=== PATIENT | female | born 1990 | race Caucasian/White ===

== ENCOUNTER 2024-05-05 18:34 | Outpatient (REF) | payer OTHER, SELFPAY ==
[2024-05-10 12:11] LABS: Age Gdln ACOG Testing Note (.); HPV Aptima Negative (Negative); IGP, Aptima HPV, rfx 16/18,45 Note (.)
== END 2024-05-05 18:35 | disposition home or self-care (01) ==
LOC: LAB 18:34
PROVIDERS: Visit Provider Physician Assistant
DX: Z01.419 Encounter for gynecological examination (general) (routine) without abnormal findings (principal)
CPT/HCPCS: 87624; 88175

== ENCOUNTER 2025-05-09 12:25 | Outpatient (REF) | payer BC, SELFPAY ==
--- OUTSIDE RECORDS SUMMARY | 2025-05-09 12:50 | XMS_ITS | CCD ---
Author Organization [facility] Care Team Providers Care Resident Program Specialist Name Role Phone Oanh Gil Unavailable JEANCARLOS ., DR HANSEN Admitting Unavailable REQUEST, NONE LISTED Primary Care Unavaila ble JEANCARLOS ., DR HANSEN Consulting Unavailable JEANCARLOS ., DR HANSEN Attending Unavailable ZIEBER, DR HAILEE Carrillo Consulting Unavailable JEANCARLOS ., DR HANSEN Admitting Unavailable REQUEST, DR NIX LISTED Primary Care Unavaila ble JEANCARLOS ., DR HANSEN Attending Unavailable REQUEST, NONE LISTED Primary Care Unavaila ble JEANCARLOS ., DR HANSEN Admitting Unavailable JEANCARLOS ., DR HANSEN Attending Unavailable JEANCARLOS ., DR HANSEN Admitting Unavailable REQUEST, DR NIX LISTED Primary Care Unavaila ble JEANCARLOS ., DR HANSEN Attending Unavailable CYNTHIA VIRGEN Consulting Unavailable JEANCARLOS ., DR HANSEN Admitting Unavailable JEANCARLOS ., DR HANSEN Attending Unavailable REQUEST, NONE LISTED Primary Care Unavaila ble JEANCARLOS ., DR HANSEN Consulting Unavailable CYNTHIA VIRGEN Consulting Unavailable JEANCARLOS ., DR HANSEN Admitting Unavailable REQUEST, NONE LISTED Primary Care Unavaila ble JEANCARLOS ., DR HANSEN Attending Unavailable JEANCARLOS ., DR HANSEN Consulting Unavailable REQUEST, NONE LISTED Primary Care Unavaila ble KARASIK ., DR KAY Attending Unavailabl e KARASIK ., DR AKY Consulting Unavailabl e KARASIK ., DR KAY Admitting Unavailabl e JEANCARLOS ., DR HANSEN Consulting Unavailable REQUEST, DR NONE LISTED Primary Care Unavaila ble JEANCARLOS ., DR HANSEN Admitting Unavailable JEANCARLOS ., DR HANSEN Attending Unavailable JEANCARLOS ., DR HANSEN Consulting Unavailable JEANCARLOS ., DR HANSEN Admitting Unavailable JEANCARLOS ., DR HANSEN Attending Unavailable REQUEST, DR NONE LISTED Primary Care Unavaila ble ZIEBER, DR HAILEE Carrillo Consulting Unavailable JEANCARLOS ., DR HANSEN Admitting Unavailable JEANCARLOS ., DR HANSEN Attending Unavailable PROMISE, CYNTHIA Consulting Unavailable REQUEST, DR NONE LISTED Primary Care Unavaila ble JEANCARLOS ., DR HANSEN Consulting Unavailable REQUEST, DR NONE LISTED Primary Care Unavaila ble KARASIK ., DR KAY Admitting Unavailabl e KARASIK ., DR KAY Attending Unavailabl e KARASIK ., DR KAY Consulting Unavailabl e RUFF, SWEETIE Primary Care Unavailable JEANCARLOS ., DR HANSEN Admitting Unavailable JEANCARLOS ., DR HANSEN Attending Unavailable JEANCARLOS ., DR HANSEN Admitting Unavailable JEANCARLOS ., DR HANSEN Attending Unavailable RUFF, SWEETIE Primary Care Unavailable JEANCARLOS ., DR HANSEN Admitting Unavailable JEANCARLOS ., DR HANSEN Attending Unavailable REQUEST, DR NONE LISTED Primary Care Unavaila ble REQUEST, DR NONE LISTED Primary Care Unavaila ble KARASIK ., DR KAY Attending Unavailabl e KARASIK ., DR KAY Consulting Unavailabl e KARASIK ., DR KAY Admitting Unavailabl e REQUEST, DR NONE LISTED Primary Care Unavaila ble JEANCARLOS ., DR HANSEN Admitting Unavailable FORTUNATO COPELAND Consulting Unavailable JEANCARLOS ., DR HANSEN Attending Unavailable JEANCARLOS ., DR HANSEN Consulting Unavailable JEANCARLOS ., DR HANSEN Admitting Unavailable REQUEST, DR NONE LISTED Primary Care Unavaila ble JEANCARLOS ., DR HANSEN Attending Unavailable JEANCARLOS ., DR HANSEN Admitting Unavailable REQUEST, DR NONE LISTED Primary Care Unavaila ble JEANCARLOS ., DR HANSEN Attending Unavailable KARASIK ., DR KAY Consulting Unavailabl e JEANCARLOS ., DR HANSEN Admitting Unavailable REQUEST, DR NONE LISTED Primary Care Unavaila ble JEANCARLOS ., DR HANSEN Attending Unavailable JEANCARLOS ., DR HANSEN Consulting Unavailable HAILEE BURRELL Consulting Unavailable JEANCARLOS ., DR AHNSEN Procedure Practitioner Unavail able REQUEST, DR NONE LISTED Primary Care Unavaila ble JEANCARLOS ., DR HANSEN Admitting Unavailable JEANCARLOS ., DR HANSEN Attending Unavailable JEANCARLOS ., DR HANSEN Consulting Unavailable KARASIK ., DR KAY Attending Unavailabl e KARASIK ., DR KAY Consulting Unavailabl e KARASIK ., DR KAY Admitting Unavailabl e REQUEST, DR NONE LISTED Primary Care Unavaila CYNTHIA Gutiérrez Consulting Unavailable JEANCARLOS ., DR HANSEN Consulting Unavailable JEANCARLOS ., DR HANSEN Admitting Unavailable REQUEST, NONE LISTED Primary Care Unavaila sánchez ARSHAD ., DR HANSEN Consulting Unavailable JEANCARLOS ., DR HANSEN Attending Unavailable Sweetie Brandon Primary Care Provid er Unavailable Primary Care Provider UnavailSWEETIE Parker Attending Unavailable SWEETIE RUFF Referring Unavailable SWEETIE RUFF Primary Care Unavailable SWEETIE RUFF Referring Unavailable SWEETIE RUFF Primary Care Unavailable SUE NEIL Attending Unavailable SUE NEIL Attending Unavailable JOLYNN CASTILLO Attending Unavailable Sue Chaudhry Unavailable Medications Current Medications Medication Drug Class(es) Dates Sig (Normalized) Sig (Original) doxycycline monohydrate 100 mg oral capsule (7 sources) Tetracycline-class Drug Start: 12-12-2024 take 1 capsule by mouth once daily doxycycline (Monodox) 100 MG capsule Indications: Hidradenitis suppurativa Take 1 capsule, by mouth, once daily, 30 days 30 capsule 11 12/12/2024 Active labetalol hydrochloride 100 mg oral tablet (1 source) beta-Adrenergic Dolly take 1 tablet by mouth every twelve hours Labetalol HCl 100 MG 1 tablet Orally Twice a day Active levonorgestrel 0.164374 mg/hr intrauterine system (8 sources) Progestin, Progestin-containi ng Intrauterine Device Levonorgestrel (Mirena, 52 MG,) 20 MCG/DAY intrauterine device Mirena (52 MG) Active levonorgestreL ( MIRENA) 21 mcg/24hr (up to 8 yrs) 52 mg IUD Mirena (52 MG) Active (1 source) Active Problems Active Problems Problem Classification Problem Date Documented Date Episodic/Chronic Diabetes or abnormal glucose tolerance complicating ; childbirth; or the puerperium (1 source) Unspecified pre-existing diabetes mellitus in , third trimester; Translations: [UNS PRE-EXISTING DM PREG 3RD TRI] Onset: 03-20-2022 Chronic Hypertension complicating ; childbirth and the puerperium (8 sources) Unspecified pre-existing hypertension complicating childbirth; Translations: [Unspecified pre-existing hypertension complicating , third trimester] Onset: 02-14-2019 Resolved: 01-05-2024 Chronic Immunizations and screening for infectious disease (2 sources) Contact with and (suspected) exposure to other viral communicable diseases; Translations: [Encounter for screening for human papillomavirus (HPV)] Onset: 10-18-2021 Resolved: 10-18-2021 Episodic Other screening for suspected conditions (not mental disorders or infectious disease) (8 sources) Encounter for screening for malignant neoplasm of cervix; Translations: [Encounter for screening for Streptococcus B] Onset: 03-26-2022 Episodic Other skin disorders (4 sources) Hidradenitis suppurativa; Translations: [Hidradenitis suppurativa] 12-12-2024 Episodic Unclassified (1 source) CONTACT W/AND (SUSP) EXPOS COVID-19; Translations: [CONTACT W/AND (SUSP) EXPOS COVID-19] Onset: 04-08-2022 Unclassified (1 source) Annual Exam Onset: 01-05-2025 Past or Other Problems Problem Classification Problem Date Documented Da te Episodic/Chronic Diabetes or abnormal glucose tolerance complicating ; childbirth; or the puerperium (8 sources) Gestational diabetes mellitus in , insulin controlled; Translations: [Gestational diabetes mellitus in childbirth, insulin controlled] Onset: 03-26-2022 Episodic Mood disorders (2 sources) Mood disorders Onset: 01-05-2024 Resolved: 01-05-2025 01-05-2024 Nutritional deficiencies (2 sources) Vitamin D deficiency; Translations: [Vitamin D deficiency, unspecified] Onset: 01-26-2019 Resolved: 01-05-2024 01-05-2024 Chronic OB-related trauma to perineum and vulva (1 source) Other specified trauma to perineum and vulva; Translations: [OTHER SPEC TRAUMA PERINEUM AND VULVA] Onset: 04-08-2022 Episodic Other aftercare (1 source) marine oil terminal superintendent (current) use of insulin; 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] Onset: 03-20-2022 Episodic Other complications of ; puerperium affecting management of mother (4 sources) Maternal care for other (suspected) abnormality and damage, not applicable or unspecified; Translations: [MAT CARE OTH ABN DAMGE NA/UNS] Onset: 03-20-2022 Episodic Other and delivery including normal (11 sources) Encounter for care and examination of lactating mother; Translations: [Encounter for routine follow-up] Onset: 05-13-2019 Resolved: 01-05-2024 Episodic Other upper respiratory infections (1 source) Acute upper respiratory infection, unspecified Onset: 10-18-2021 Resolved: 10-18-2021 Episodic Residual codes; unclassified (1 source) 37 weeks gestation of ; Translations: [37 WEEKS GESTATION OF ] Onset: 04-08-2022 Episodic Residual codes; unclassified (1 source) 36 weeks gestation of ; Translations: [36 WEEKS GESTATION OF ] Onset: 03-31-2022 Episodic Residual codes; unclassified (1 source) 35 weeks gestation of ; Translations: [35 WEEKS GESTATION OF ] Onset: 03-31-2022 Episodic Residual codes; unclassified (1 source) 34 weeks gestation of ; Translations: [34 WEEKS GESTATION OF ] Onset: 03-20-2022 Episodic Residual codes; unclassified (1 source) 33 weeks gestation of ; Translations: [33 WEEKS GESTATION OF ] Onset: 03-13-2022 Episodic Residual codes; unclassified (1 source) 32 weeks gestation of ; Translations: [32 WEEKS GESTATION OF ] Onset: 03-05-2022 Episodic Unclassified (1 source) Cough R05.9 Onset: 10-18-2021 Resolved: 10-18-2021 Unclassified (2 sources) Onset: 01-05-2024 Resolved: 01-09-2025 01-05-2024 NEGATED: Highlighted row has been ruled out!Unclassified (2 sources) No known active problems 01-05-2024 Results Test Name Value Interpretation Reference Range Facility Hemoglobin A1con 01-06-2025 Average glucose Estimated from glycated hemoglobin (Bld) [Mass/Vol] 123 mg/dL [facility] HbA1c (Bld) [Mass fraction] 5.9 % High 4.4 - 5.6 % [facility] Comment on above: NOTE ADA Guidelines Result HgbA1c Normal : less than 5.7 % Prediabetes : 5.7 % to 6.4 % Diabetes : > 6.4 % Use with caution in patients with abnormal hemoglobin variants as the half-life of red blood cells and in vivo glycation rates are affected. Interpretation and review of laboratory results Abnormal [facility] CBC AND AUTO DIFFon 01-06-20 25 ABSOLUTE BASOPHIL 0.0 X10E9/L Normal 0.0-0.2 [facility] Comment on above: Performed By: #### Taco SIMMS CMP, 30911-1, HA1C #### [facility] ([id number]) [address], [address] [place] [address] ABSOLUTE NEUTROPHIL 5.3 X10E9/L Normal 1.5-6.6 [facility] Comment on above: Performed By: #### Taco SIMMS CMP, 16219-6, HA1C #### [facility] ([id number]) [address], [address] [place] [address] Basophils/100 WBC (Bld) 0.4 % Normal [facility] Comment on above: Performed By: #### Taco SIMMS CMP, 96021-5, HA1C #### [facility] ([id number]) [address], [address] [place] [address] Eosinophils (Bld) [#/Vol] 0.1 10*3/uL Normal 0.0-0.4 [facility] Comment on above: Performed By: #### Taco SIMMS CMP, 88559-9, HA1C #### [facility] ([id number]) [address], [address] [place] [address] Eosinophils/100 WBC (Bld) 0.7 % Normal [facility] Comment on above: Performed By: #### Taco SIMMS CMP, 09874-5, HA1C #### [facility] ([id number]) [address], [address] [place] [address] Erythrocyte distribution width (RBC) [Ratio] 13.2 % Normal 11.5-15.0 [facility] Comment on above: Performed By: #### C JASWANT SIMMS, 47044-8, HA1C #### [facility] ([id number]) [address], [address] [place] [address] Hematocrit (Bld) [Volume fraction] 40.5 % Normal 35-47 [facility] Comment on above: Performed By: #### Taco SIMMS CMP, 74031-9, HA1C #### [facility] ([id number]) [address], [address] [place] [address] Hemoglobin (Bld) [Mass/Vol] 13.7 g/dL Normal 11.7-15.5 [facility] Comment on above: Performed By: #### Taco SIMMS CMP, 11405-0, HA1C #### [facility] ([id number]) [address], [address] [place] [address] Lymphocytes (Bld) [#/Vol] 2.1 10*3/uL Normal 1.0-3.5 [facility] Comment on above: Performed By: #### Taco SIMMS CMP, 99487-7, HA1C #### [facility] ([id number]) [address], [address] [place] [address] Lymphocytes/100 WBC (Bld) 26.6 % Normal [facility] Comment on above: Performed By: #### Taco SIMMS CMP, 82229-8, HA1C #### [facility] ([id number]) [address], [address] [place] [address] MCH (RBC) [Entitic mass] 30.2 pg Normal 27-34 [facility] Comment on above: Performed By: #### Taco SIMMS CMP, 51786-8, HA1C #### [facility] ([id number]) [address], [address] [place] [address] MCHC (RBC) [Mass/Vol] 34.0 g/dL Normal 32-36 [facility] Comment on above: Performed By: #### C JASWANT SIMMS, 26381-1, HA1C #### [facility] ([id number]) [address], [address] [place] [address] MCV (RBC) [Entitic vol] 89 fL Normal 80-100 [facility] Comment on above: Performed By: #### Taco SIMMS CMP, 99709-6, HA1C #### [facility] ([id number]) [address], [address] [place] [address] Monocytes (Bld) [#/Vol] 0.4 10*3/uL Normal 0-0.9 [facility] Comment on above: Performed By: #### Taco SIMMS CMP, 66271-8, HA1C #### [facility] ([id number]) [address], [facility] [address] [place] [address] Monocytes/100 WBC (Bld) 5.5 % Normal [facility] Comment on above: Performed By: #### Taco SIMMS CMP, 89577-5, HA1C #### [facility] ([id number]) [address], [address] [place] [address] Neutrophils/100 WBC (Bld) 66.8 % Normal [facility] Comment on above: Performed By: #### Taco SIMMS CMP, 13360-2, HA1C #### [facility] ([id number]) [address], [address] [place] [address] Platelet mean volume (Bld) [Entitic vol] 8.6 fL Normal 7-12 [facility] Comment on above: Performed By: #### Taco SIMMS CMP, 12238-6, HA1C #### [facility] ([id number]) [address], [address] [place] [address] Platelets (Bld) [#/Vol] 315 10*3/uL Normal 150-450 [facility] Comment on above: Performed By: #### C DEMI, CMP, 99217-5, HA1C #### [facility] ([id number]) [address], [address] [place] [address] RBC COUNT 4.54 X10E12/L Normal 3.80-5.20 [facility] Comment on above: Performed By: #### Taco SIMMS, JASWANT, 17602-0, HA1C #### [facility] ([id number]) [address], [address] [place] [address] WBC (Bld) [#/Vol] 7.9 10*3/uL Normal 4.0-11.0 [facility] Comment on above: Performed By: #### Taco SIMMS, CMP, 39816-5, HA1C #### [facility] ([id number]) [address], [address] [place] [address] CBC auto differentialon 12-18 Basophils (Bld) [#/Vol] 0 10*3/uL [facility] Basophils/100 WBC (Bld) 0.4 % [facility] Eosinophils (Bld) [#/Vol] 0.1 10*3/uL [facility] Eosinophils/100 WBC (Bld) 0.7 % [facility] Erythrocyte distribution width (RBC) [Ratio] 13.2 % 11.5 - 15.0 % [facility] Hematocrit (Bld) [Volume fraction] 40.5 % 35 - 47 % [facility] Hemoglobin (Bld) [Mass/Vol] 13.7 g/dL 11.7 - 15.5 g/dL [facility] Lymphocytes (Bld) [#/Vol] 2.1 10*3/uL [facility] Lymphocytes/100 WBC (Bld) 26.6 % [facility] MCH (RBC) [Entitic mass] 30.2 pg 27 - 34 pg [facility] MCHC (RBC) [Mass/Vol] 34 g/dL 32 - 36 g/dL [facility] MCV (RBC) [Entitic vol] 89 fL 80 - 100 fL [facility] Monocytes (Bld) [#/Vol] 0.4 10*3/uL [facility] Monocytes/100 WBC (Bld) 5.5 % [facility] Neutrophils (Bld) [#/Vol] 5.3 10*3/uL [facility] Neutrophils/100 WBC (Bld) 66.8 % [facility] Platelet mean volume (Bld) [Entitic vol] 8.6 fL 7 - 12 fL [facility] Platelets (Bld) [#/Vol] 315 10*3/uL [facility] RBC (Bld) [#/Vol] 4.54 10*6/uL [facility] WBC corrected for nucl RBC Auto (Bld) [#/Vol] 7.9 [facility] COMPREHENSIVE METABOLIC PANE Mariano 01-05-2025 Albumin [Mass/Vol] 4.2 g/dL Normal 3.2-5.3 [facility] Comment on above: Performed By: #### C BCA, CMP, 35784-4, HA1C #### [facility] ([id number]) [address], [address] [place] [address] ALP [Catalytic activity/Vol] 36 U/L Low 39-130 [facility] Comment on above: Performed By: #### C BCA, CMP, 12083-4, HA1C #### [facility] ([id number]) [address], [address] [place] [address] ALT [Catalytic activity/Vol] 45 U/L High 0-31 [facility] Comment on above: Performed By: #### C BCA, CMP, 89160-8, HA1C #### [facility] ([id number]) [address], [address] [place] [address] Anion gap [Moles/Vol] 7 mmol/L Normal 5-15 [facility] Comment on above: Performed By: #### C BCA, CMP, 90257-1, HA1C #### [facility] ([id number]) [address], [address] [place] [address] AST [Catalytic activity/Vol] 26 U/L Normal 0-41 [facility] Comment on above: Performed By: #### C BCA, CMP, 46887-1, HA1C #### [facility] ([id number]) [address], [address] [place] [address] Bilirubin [Mass/Vol] 0.4 mg/dL Normal 0.3-1.2 [facility] Comment on above: Performed By: #### C BCA, CMP, 45223-7, HA1C #### [facility] ([id number]) [address], [address] [place] [address] Calcium [Mass/Vol] 9.2 mg/dL Normal 8.5-10.5 [facility] Comment on above: Performed By: #### C BCA, CMP, 82659-2, HA1C #### [facility] ([id number]) [address], [address] [place] [address] Chloride [Moles/Vol] 104 mmol/L Normal 98-109 [facility] Comment on above: Performed By: #### C BCA, CMP, 93410-5, HA1C #### [facility] ([id number]) [address], [address] [place] [address] CO2 [Moles/Vol] 27 mmol/L Normal 22-32 [facility] Comment on above: Performed By: #### C BCA, CMP, 49394-4, HA1C #### [facility] ([id number]) [address], [address] [place] [address] Creatinine [Mass/Vol] 0.77 mg/dL Normal 0.40-1.00 [facility] Comment on above: Result Comment: METH OD TRACEABLE TO IDMS STANDARD Performed By: #### C BCA, CMP, 99452-5, HA1C #### [facility] ([id number]) [address], [address] [place] [address] eGFR (CKD-EPI) NON-RACE DEPENDENT >90 Normal >59 [facility] Comment on above: Result Comment: Reported eGFR is based on the CKD-EPI 2020 equation that does not use a race coefficient. Performed By: #### C BCA, CMP, 43969-7, HA1C #### [facility] ([id number]) [address], [address] [place] [address] Glucose [Mass/Vol] 108 mg/dL High 65-99 [facility] Comment on above: Performed By: #### C BCA, CMP, 31366-5, HA1C #### [facility] ([id number]) [address], [address] [place] [address] Potassium [Moles/Vol] 3.9 mmol/L Normal 3.5-5.0 [facility] Comment on above: Performed By: #### C BCA, CMP, 88642-9, HA1C #### [facility] ([id number]) [address], [address] [place] [address] Protein [Mass/Vol] 7.5 g/dL Normal 6.0-8.0 [facility] Comment on above: Performed By: #### C BCA, CMP, 74733-7, HA1C #### [facility] ([id number]) [address], [address] [place] [address] Sodium [Moles/Vol] 138 mmol/L Normal 134-146 [facility] Comment on above: Performed By: #### C BCA, CMP, 72351-1, HA1C #### [facility] ([id number]) [address], [address] [place] [address] Urea nitrogen [Mass/Vol] 15 mg/dL Normal 5-23 [facility] Comment on above: Performed By: #### C BCA, CMP, 95824-4, HA1C #### [facility] ([id number]) [address] [facility], [address] [place] [address] Comprehensive metabolic pane mariano 01-05-2025 Albumin [Mass/Vol] 4.2 g/dL 3.2 - 5.3 g/dL [facility] ALP [Catalytic activity/Vol] 36 U/L Low 39 - 130 U/L [facility] ALT No additional P-5'-P [Catalytic activity/Vol] 45 U/L High 0 - 31 U/L [facility] Anion gap [Moles/Vol] 7 mmol/L 5 - 15 mmol/L [facility] AST [Catalytic activity/Vol] 26 U/L 0 - 41 U/L [facility] Bilirubin [Mass/Vol] 0.4 mg/dL 0.3 - 1.2 mg/dL [facility] Calcium [Mass/Vol] 9.2 mg/dL 8.5 - 10. 5 mg/dL [facility] Chloride [Moles/Vol] 104 mmol/L 98 - 109 mmol/L [facility] CO2 [Moles/Vol] 27 mmol/L 22 - 32 mmol/L [facility] Creatinine [Mass/Vol] 0.77 mg/dL 0.40 - 1.00 mg/dL [facility] Comment on above: METHOD TRACEABLE TO IDNJ STANDARD eGFR (CKD-EPI)non-race dependent - PINF [facility] Comment on above: Reported eGFR is based on the CKD-EPI 2020 equation that does not use a race coefficient. Glucose [Mass/Vol] 108 mg/dL High 65 - 99 mg/dL [facility] Potassium [Moles/Vol] 3.9 mmol/L 3.5 - 5.0 mmol/L [facility] Protein [Mass/Vol] 7.5 g/dL 6.0 - 8.0 g/dL [facility] Sodium [Moles/Vol] 138 mmol/L 134 - 146 mmol/L [facility] Urea nitrogen [Mass/Vol] 15 mg/dL 5 - 23 mg/dL [facility] HGB A1C (GLYCO-HGB)on 2024 Glucose [Mass/Vol] 123 mg/dL Normal [facility] Comment on above: Performed By: #### C DEMI, [facility], 46870-9, HA1C #### [facility] ([id number]) [address], [address] [place] [address] HbA1c (Bld) [Mass fraction] 5.9 % High 4.4-5.6 [facility] Comment on above: Result Comment: NOTE ADA Guidelines Result HgbA1c Normal : less than 5.7 % Prediabetes : 5.7 % to 6.4 % Diabetes : > 6.4 % Use with caution in patients with abnormal hemoglobin variants as the half-life of red blood cells and in vivo glycation rates are affected. Performed By: #### C DEMI, [facility], 81884-5, HA1C #### [facility] ([id number]) [address], [address] [place] [address] Lipid 1996 panelon 5 Cholesterol [Mass/Vol] 124 mg/dL Low 150 - 200 [facility] Cholesterol in HDL [Mass/Vol] 50 mg/dL 39 - PINF mg/dL [facility] Comment on above: HDL <40 mg/dL - High Risk HDL > or = 40mg/dL- Desirable HDL >60 mg/dL - Negative Risk Cholesterol in LDL [Mass/Vol] 63 mg/dL NINF - 130 mg/dL [facility] Comment on above: LDL <100 mg/dL - Desirable LDL >160 mg/dL - High Risk Cholesterol in VLDL [Mass/Vol] 11 mg/dL 0 - 30 mg/dL [facility] Cholesterol.total/C holesterol in HDL [Mass ratio] 2.5 {ratio} 1.0 - 5.0 [facility] Triglyceride [Mass/Vol] 54 mg/dL 27 - 150 mg/dL [facility] Cholesterol [Mass/Vol] 124 mg/dL Low 150-200 [facility] Comment on above: Performed By: #### Taco SIMMS, JASWANT, 62661-4, HALam #### [facility] ([id number]) [address], [address] [place] [address] Cholesterol in HDL [Mass/Vol] 50 mg/dL Normal >39 [facility] Comment on above: Result Comment: HDL <40 mg/dL - High Risk HDL > or = 40mg/dL- Desirable HDL >60 mg/dL - Negative Risk Performed By: #### Taco SIMMS, JASWANT, 90211-3, HA1C #### [facility] ([id number]) [address], [address] [place] [address] Cholesterol in LDL [Mass/Vol] 63 mg/dL Normal <130 [facility] Comment on above: Result Comment: LDL <100 mg/dL - Desirable LDL >160 mg/dL - High Risk Performed By: #### Taco SIMMS, JASWANT, 59309-5, HA1C #### [facility] ([id number]) [address] [place] [address] Cholesterol in VLDL [Mass/Vol] 11 mg/dL Normal 0-30 [facility] Comment on above: Performed By: #### Taco SIMMS, JASWANT, 47996-2, HA1C #### [facility] ([id number]) [address], [address] [place] [address] CHOLESTEROL:HDL 2.5 Normal 1.0-5.0 [facility] Comment on above: Performed By: #### C DEMI, CMP, 48118-2, HA1C #### [facility] ([id number]) [address], [address] [place] [address] Triglyceride [Mass/Vol] 54 mg/dL Normal 27-150 [facility] Comment on above: Performed By: #### C BCA, CMP, 19010-6, HA1C #### [facility] ([id number]) [address], [address] [place] [address] No Panel Informationon 01-05 Interpretation and review of laboratory results Abnormal [facility] CBC auto differentialon 12-17 Basophils (Bld) [#/Vol] 0.0 10*3/uL [facility] Basophils/100 WBC (Bld) 0.4 % [facility] Eosinophils (Bld) [#/Vol] 0.1 10*3/uL [facility] Eosinophils/100 WBC (Bld) 0.6 % [facility] Erythrocyte distribution width (RBC) [Ratio] 13.0 % 11.5 - 15.0 % [facility] Hematocrit (Bld) [Volume fraction] 40.4 % 35 - 47 % [facility] Hemoglobin (Bld) [Mass/Vol] 13.9 g/dL 11.7 - 15.5 g/dL [facility] Interpretation and review of laboratory results Abnormal [facility] Lymphocytes (Bld) [#/Vol] 2.5 10*3/uL [facility] Lymphocytes/100 WBC (Bld) 24.2 % [facility] MCH (RBC) [Entitic mass] 30.4 pg 27 - 34 pg [facility] MCHC (RBC) [Mass/Vol] 34.3 g/dL 32 - 36 g/dL [facility] MCV (RBC) [Entitic vol] 89 fL 80 - 100 fL [facility] Monocytes (Bld) [#/Vol] 0.5 10*3/uL [facility] Monocytes/100 WBC (Bld) 4.8 % [facility] Neutrophils (Bld) [#/Vol] 7.3 10*3/uL High [facility] Neutrophils/100 WBC (Bld) 70.0 % [facility] Platelet mean volume (Bld) [Entitic vol] 8.6 fL 7 - 12 fL [facility] Platelets (Bld) [#/Vol] 330 10*3/uL [facility] RBC (Bld) [#/Vol] 4.55 10*6/uL [facility] WBC corrected for nucl RBC Auto (Bld) [#/Vol] 10.4 [facility] metabolic pane mariano 01-05-2024 Albumin [Mass/Vol] 4.3 g/dL 3.2 - 5.3 g/dL [facility] ALP [Catalytic activity/Vol] 44 U/L 39 - 130 U/L [facility] ALT No additional P-5'-P [Catalytic activity/Vol] 41 U/L High 0 - 31 U/L [facility] Anion gap [Moles/Vol] 10 mmol/L 5 - 15 mmol/L [facility] AST [Catalytic activity/Vol] 20 U/L 0 - 41 U/L [facility] Bilirubin [Mass/Vol] 0.4 mg/dL 0.3 - 1.2 mg/dL [facility] Calcium [Mass/Vol] 9.4 mg/dL 8.5 - 10. 5 mg/dL [facility] Chloride [Moles/Vol] 102 mmol/L 98 - 109 mmol/L [facility] CO2 [Moles/Vol] 27 mmol/L 22 - 32 mmol/L [facility] Creatinine [Mass/Vol] 0.79 mg/dL 0.40 - 1.00 mg/dL [facility] Comment on above: METHOD TRACEABLE TO IDNJ STANDARD eGFR (CKD-EPI)non-race dependent - PINF [facility] Comment on above: Reported eGFR is based on the CKD-EPI 2020 equation that does not use a race coefficient. Glucose [Mass/Vol] 97 mg/dL 65 - 99 mg/dL [facility] Interpretation and review of laboratory results Abnormal [facility] Potassium [Moles/Vol] 4.2 mmol/L 3.5 - 5.0 mmol/L [facility] Protein [Mass/Vol] 7.8 g/dL 6.0 - 8.0 g/dL [facility] Sodium [Moles/Vol] 139 mmol/L 134 - 146 mmol/L [facility] Urea nitrogen [Mass/Vol] 15 mg/dL 5 - 23 mg/dL [facility] TSHon 01-05-2024 TSH Qn 0.97 m[IU]/L [facility] TSH Qnon 01-05-2024 [facility] PAP ACOG PANEL 2: 30 to 65on 02-17-2023 . . Normal [facility] Comment on above: Result Comment: Perf ormed at: WB Performed By: #### [id number] #### [facility] [address] [place] [address] Dr. Enoc Lyle Age Gdln ACOG Testing 30-65 Normal [facility] Comment on above: Performed By: #### 4 [id number] #### [facility] [address] [address] [address] Enoc Lyle DIAGNOSIS: Comment Normal [facility] Comment on above: Result Comment: NEGA TIVE FOR INTRAEPITHELIAL LESION OR MALIGNANCY. THIS SPECIMEN WAS RESCREENED PART OF OUR [employer] PROGRAM. Performed at: WB Performed By: #### 4 [id number] #### [facility] [address] [address] [address] Enoc Lyle HPV Aptima Negative Normal Negative [facility] Comment on above: Result Comment: This nucleic acid amplification test detects fourteen high-risk HPV types (16,18,31,33,35,39,45,51,52,56,58,59,66,68) without differentiation. Performed at: =G Performed By: #### 4 [id number] #### [facility] [address] [place] [address] Dr. Enoc Lyle HPV Genotype Reflex Comment Normal [facility] Comment on above: Result Comment: Crit eria not met, HPV Genotype not performed. Performed at: WB Performed By: #### 4 [id number] #### [facility] [address] [place] [address] Dr. Enoc Lyle Methodology: Comment Normal [facility] Comment on above: Result Comment: This liquid based ThinPrep(R) pap test was screened with the use of an image guided system. Performed at: WB Performed By: #### 4 [id number] #### [facility] [address] [place] [address] Dr. Enoc Lyle Note: Comment Normal [facility] Comment on above: Result Comment: The Pap smear is a screening test designed to aid in the detection of premalignant and malignant conditions of the uterine cervix. It is not a diagnostic procedure and should not be used as the sole means of detecting cervical cancer. Both false-positive and false-negative reports do occur. . Performed at: WB Performed By: #### 4 [id number] #### [facility] [address] [place] [address] Dr. Enoc Lyle Performed by: Comment Normal [facility] Comment on above: Result Comment: Rocael Roque, Control Specialist (ASCP) Performed at: WB Performed By: #### 4 [id number] #### [facility] [address] [place] [address] Dr. Enoc Lyle QC reviewed by: Comment Normal [facility] Comment on above: Result Comment: Keke Rahman, Supervisory Control Specialist (ASCP) Performed at: WB Performed By: #### 4 [id number] #### [facility] [address] [place] [address] Dr. Enoc Lyle Specimen adequacy: Comment Normal [facility] Comment on above: Result Comment: Sati sfactory for evaluation. Endocervical and/or squamous metaplastic cells (endocervical component) are present. Performed at: WB Performed By: #### 4 [id number] #### [facility] [address] [place] [address] Dr. Enoc Lyle CBC AUTO DIFFon 04-05-2022 BASO # 0.0 103/ul Normal 0.0-0.1 [facility] Comment on above: Performed By: #### C BC ####[facility] [address] [id number]. Enoc Lyle Basophils/100 WBC (Bld) 0.3 % Normal 0.2-2.0 [facility] Comment on above: Performed By: #### C BC ####[facility] [address] [id number]. Enoc Lyle EO # 0.1 103/ul Normal 0.0-0.7 [facility] Comment on above: Performed By: #### C BC ####[facility] [address] [place], [place] [address]Dr. Enoc Lyle Eosinophils/100 WBC (Bld) 0.8 % Critically low 0.9-7.0 [facility] Comment on above: Performed By: #### C BC ####[facility] [address] [place], [place] [address]Dr. Enoc Lyle Erythrocyte distribution width (RBC) [Ratio] 12.8 % Normal 11.0-15.0 [facility] Comment on above: Performed By: #### C BC ####[facility] [address] [place], [place] [address]Dr. Enoc Lyle Hematocrit (Bld) [Volume fraction] 30.2 % Critically low 36.0-48.0 [facility] Comment on above: Performed By: #### C BC ####[facility] [address] [id number]. Enoc Lyle Hemoglobin (Bld) [Mass/Vol] 9.8 g/dL Critically low 12.0-16.0 [facility] Comment on above: Performed By: #### C BC ####[facility] [address] [address]Dr. Enoc Lyle IG # 0.05 10e3/ul Critically high 0.00-0.03 [facility] Comment on above: Performed By: #### C BC ####[facility] [address] [place], [place] [address]Dr. Enoc Lyle IG % 0.5 % Normal 0.0-0.5 [facility] Comment on above: Performed By: #### C BC ####[facility] [address] [address]Dr. Enoc Lyle LYMPH # 2.1 103/ul Normal 1.2-3.8 [facility] Comment on above: Performed By: #### C BC ####[facility] [address] [address]Dr. Enoc Lyle Lymphocytes/100 WBC (Bld) 20.1 % Critically low 20.5-60.0 [facility] Comment on above: Performed By: #### C BC ####[facility] [address] [address]Dr. Enoc Lyle MANUAL DIFF REQ NO Normal [facility] Comment on above: Performed By: #### C BC ####[facility] [address] [id number]. Enoc Lyle MCH (RBC) [Entitic mass] 29.5 pg Normal 26.7-34.0 [facility] Comment on above: Performed By: #### C BC ####[facility] [address] [address]Dr. Enoc Lyle MCHC (RBC) [Mass/Vol] 32.5 g/dL Normal 29.9-35.2 [facility] Comment on above: Performed By: #### C BC ####[facility] [address] [address]Dr. Enoc Lyle MCV (RBC) [Entitic vol] 91.0 fL Normal 81.0-99.0 [facility] Comment on above: Performed By: #### C BC ####[facility] [address] [address]Dr. Enoc Lyle MONO # 0.7 103/ul Normal 0.3-0.8 [facility] Comment on above: Performed By: #### C BC ####[facility] [address] [address]Dr. Enoc Lyle Monocytes/100 WBC (Bld) 6.5 % Normal 1.7-12.0 [facility] Comment on above: Performed By: #### C BC ####[facility] [address] [address]Dr. Rosibelluis Lyle NEUT # 7.4 103/ul Critically high 1.4-6.5 [facility] Comment on above: Performed By: #### C BC ####[facility] [address] [address]Dr. Enoc Lyle Neutrophils/100 WBC (Bld) 71.8 % Normal 43.0-75.0 [facility] Comment on above: Performed By: #### C BC ####[facility] [address] [address]Dr. Enoc Lyle Platelet mean volume (Bld) [Entitic vol] 9.5 fL Normal 9.5-13.5 [facility] Comment on above: Performed By: #### C BC ####[facility] [address] [address]Dr. Enoc Lyle PLT 251 103/ul Normal 150-450 [facility] Comment on above: Performed By: #### C BC ####[facility] [address] [address]DrEda Lyle RBC 3.32 106/ul Critically low 4.20-5.40 [facility] Comment on above: Performed By: #### C BC ####[facility] [address] [address]DrEda Lyle WBC 10.3 103/ul Normal 4.0-11.0 [facility] Comment on above: Performed By: #### C BC ####[facility] [address] [address]DrEda Lyle CBC AUTO DIFFon 04-04-2022 BASO # 0.0 103/ul Normal 0.0-0.1 [facility] Comment on above: Performed By: #### C BC #### [facility] [address] [place], [place] [address] Dr. Enoc Lyle Basophils/100 WBC (Bld) 0.2 % Normal 0.2-2.0 [facility] Comment on above: Performed By: #### C BC #### [facility] [address] [place] [address] Dr. Enoc Lyle EO # 0.0 103/ul Normal 0.0-0.7 [facility] Comment on above: Performed By: #### C BC #### [facility] [address] [place] [address] Dr. Enoc Lyle Eosinophils/100 WBC (Bld) 0.4 % Critically low 0.9-7.0 [facility] Comment on above: Performed By: #### C BC #### [facility] [address] [place] [address] Dr. Enoc Lyle Erythrocyte distribution width (RBC) [Ratio] 12.9 % Normal 11.0-15.0 [facility] Comment on above: Performed By: #### C BC #### [facility] [address] [place] [address] Dr. Enoc Lyle Hematocrit (Bld) [Volume fraction] 32.3 % Critically low 36.0-48.0 [facility] Comment on above: Performed By: #### C BC #### [facility] [address] [place] [address] Dr. Enoc Lyle Hemoglobin (Bld) [Mass/Vol] 10.5 g/dL Critically low 12.0-16.0 [facility] Comment on above: Performed By: #### C BC #### [facility] [address] [place] [address] Dr. Enoc Lyle IG # 0.04 10e3/ul Critically high 0.00-0.03 [facility] Comment on above: Performed By: #### C BC #### [facility] [address] [place] [address] Dr. Enoc Lyle IG % 0.4 % Normal 0.0-0.5 [facility] Comment on above: Performed By: #### C BC #### [facility] [address] [place] [address] Dr. Enoc Lyle LYMPH # 2.3 103/ul Normal 1.2-3.8 [facility] Comment on above: Performed By: #### C BC #### [facility] [address] [place] [address] Dr. Enoc Lyle Lymphocytes/100 WBC (Bld) 22.5 % Normal 20.5-60.0 [facility] Comment on above: Performed By: #### C BC #### [facility] [address] [place] [address] Dr. Enoc Lyle MANUAL DIFF REQ NO Normal [facility] Comment on above: Performed By: #### C BC #### [facility] [address] [place] [address] Dr. Enoc Lyle MCH (RBC) [Entitic mass] 29.5 pg Normal 26.7-34.0 [facility] Comment on above: Performed By: #### C BC #### [facility] [address] [place] [address] Dr. Enoc Lyle MCHC (RBC) [Mass/Vol] 32.5 g/dL Normal 29.9-35.2 [facility] Comment on above: Performed By: #### C BC #### [facility] [address] [place] [address] Dr. Enoc Lyle MCV (RBC) [Entitic vol] 90.7 fL Normal 81.0-99.0 [facility] Comment on above: Performed By: #### C BC #### [facility] [address] [place] [address] Dr. Enoc Lyle MONO # 0.6 103/ul Normal 0.3-0.8 [facility] Comment on above: Performed By: #### C BC #### [facility] [address] [place] [address] Dr. Enoc Lyle Monocytes/100 WBC (Bld) 5.6 % Normal 1.7-12.0 [facility] Comment on above: Performed By: #### C BC #### [facility] [address] [place] [address] Dr. Enoc Lyle NEUT # 7.1 103/ul Critically high 1.4-6.5 [facility] Comment on above: Performed By: #### C BC #### [facility] [address] [place] [address] Dr. Enoc Lyle Neutrophils/100 WBC (Bld) 70.9 % Normal 43.0-75.0 [facility] Comment on above: Performed By: #### C BC #### [facility] [address] [place] [address] Dr. Enoc Lyle Platelet mean volume (Bld) [Entitic vol] 9.5 fL Normal 9.5-13.5 [facility] Comment on above: Performed By: #### C BC #### [facility] [address] [place] [address] Dr. Enoc Lyle PLT 308 103/ul Normal 150-450 [facility] Comment on above: Performed By: #### C BC #### [facility] [address] [place] [address] Dr. Enoc Lyle RBC 3.56 106/ul Critically low 4.20-5.40 [facility] Comment on above: Performed By: #### C BC #### [facility] [address] [place] [address] Dr. Enoc Lyle WBC 10.0 103/ul Normal 4.0-11.0 [facility] Comment on above: Performed By: #### C BC #### [facility] [address] [place] [address] Dr. Enoc Lyle Covid-19 PCR (CVDTB)on 03-19 SARS-CoV-2 (COVID-19) RNA MARYBEL+probe Ql (Unsp spec) Not detected Normal NOT DETECTED [facility] Comment on above: Result Comment: When diagnostic testing is negative, the possibility of a false negative should be considered in the context of a patient's recent exposures and the presence of clinical signs and symptoms consistent with SARS-CoV-2. This test is not yet approved or cleared by the [place] FDA. When there are no FDA-approved or cleared tests available, and other criteria are met, FDA can make tests available under an emergency access mechanism called an Emergency Use Authorization (EUA). The EUA for this test is supported by the [employer] Foreman of Health and Human Service's declaration that circumstances exist to justify the emergency use of in vitro diagnostics for the detection and/or diagnosis of the virus that causes COVID-19. This EUA will remain in effect for the duration of the COVID-19 declaration justifying emergency of IVDs, unless it is terminated or revoked by the FDA (after which the test may no longer be used). Performed By: #### C VDTBH #### [facility] [address] [place] [address] Dr. Enoc Lyle DRUG SCREEN RAPID (URINE)on 04-04-2022 AMP Negative Normal NEGATIVE [facility] Comment on above: Performed By: #### D RUGRPD #### [facility] [address] [place] [address] Dr. Enoc Lyle BAR Negative Normal NEGATIVE [facility] Comment on above: Performed By: #### D RUGRPD #### [facility] [address] [place] [address] Dr. Enoc Lyle BUP Negative Normal NEGATIVE [facility] Comment on above: Performed By: #### D RUGRPD #### [facility] [address] [place] [address] Dr. Enoc Lyle BZO Negative Normal NEGATIVE [facility] Comment on above: Performed By: #### D RUGRPD #### [facility] [address] [place] [address] Dr. Enoc Lyle KOURTNEY Negative Normal NEGATIVE [facility] Comment on above: Performed By: #### D RUGRPD #### [facility] [address] [place] [address] Dr. Enoc Lyle CUT-OFFS SEE BELOW Normal [facility] Comment on above: Result Comment: AMP (Amphetamine): 500ng/mL, BAR (Barbituates): 200 ng/mL, BZO (Benzodiazepines): 150 ng/mL, BUP (Buprenorphine): 10 ng/mL, KOURTNEY (Cocaine): 150 ng/mL, mAMP (Methamphetamine): 500 ng/mL, MTD (Methadone): 200 ng/mL, OPI (Opiates): 100 ng/mL, OXY (Oxycodone): 100 ng/mL, PCP (Phencyclidine): 25 ng/mL, PPX (Propoxyphene): 300 ng/mL, THC (Cannabinoids): 50 ng/mL, TCA (Trycyclic Antidepressants): 300 ng/mL Performed By: #### D RUGRPD #### [facility] [address] [place] [address] Dr. Enoc Lyle DRUG CUT HEADER DRUG CLASS TEST SYSTEM CUT-OFF CONCENTRATIONS ARE FOLLOWS: Normal [facility] Comment on above: Performed By: #### D RUGRPD #### [facility] [address] [place] [address] Dr. Enoc Lyle mAMP Negative Normal NEGATIVE [facility] Comment on above: Performed By: #### D RUGRPD #### [facility] [address] [place] [address] Dr. Enoc Lyle MTD Negative Normal NEGATIVE [facility] Comment on above: Performed By: #### D RUGRPD #### [facility] [address] [place] [address] Dr. Enoc Lyle OPI Negative Normal NEGATIVE [facility] Comment on above: Performed By: #### D RUGRPD #### [facility] [address] [place] [address] Dr. Enoc Lyle OXY Negative Normal NEGATIVE [facility] Comment on above: Performed By: #### D RUGRPD #### [facility] [address] [place] [address] Dr. Enoc Lyle PCP Negative Normal NEGATIVE [facility] Comment on above: Performed By: #### D RUGRPD #### [facility] [address] [place] [address] Dr. Enoc Lyle PPX Negative Normal NEGATIVE [facility] Comment on above: Performed By: #### D RUGRPD #### [facility] [address] [place] [address] Dr. Enoc Lyle TCA Negative Normal NEGATIVE [facility] Comment on above: Performed By: #### D RUGRPD #### [facility] [address] [place] [address] Dr. Enoc Lyle THC Negative Normal NEGATIVE [facility] Comment on above: Performed By: #### D RUGRPD #### [facility] [address] [address] [address] Enoc Lyle POINT OF CARE GLUCOSEon 03-19 Glucose [Mass/Vol] 126 mg/dL Critically high 74-106 T [facility] Comment on above: Performed By: #### P OCGLUC #### [facility] [address] [address] [address] Enoc Lyle TYPE AND SCREENon 04-04-2022 TYPE AND SCREEN Negative Normal [facility] Comment on above: Performed By: #### T NS ####[facility] [address] [address]Dr. Enoc Lyle US PREG BIOPHY W NON STRESSo n 04-01-2022 US PREG BIOPHY W NON STRESS EXAMINATION: US PREG BIOPHY W NON STRESS HISTORY: Gestational diabetes mellitus COMPARISON: Ultrasound biophysical 03/25/2022 TECHNIQUE: Ultrasound biophysical profile was performed. FINDINGS: BREATHING MOVEMENTS: 2.0 GROSS BODY MOVEMENTS: 2.0 TONE: 2.0 QUALITATIVE AMNIOTIC FLUID VOLUME: 2.0 PRESENTATION: Cephalic HEART RATE: 135.7 bpm bpm. AMNIOTIC FLUID VOLUME: 12.2 cm GESTATIONAL AGE: 37 weeks 0 days CONCLUSION: Total biophysical profile score 8.0. Electronically authenticated by: HAILEE GUPTA Date: 2022-04-01 16:48 Normal [facility] GROUP B STREP CULTUREon S. agalactiae Ag Ql (Unsp spec) Culture Observations: NEGATIVE FOR GROUP B STREPTOCOCCUS. Normal [facility] Comment on above: Performed By: #### G BSCX ####[facility] [id number] [place] [id number]. Enoc Lyle US PREG BIOPHY W NON STRESSo n 03-25-2022 US PREG BIOPHY W NON STRESS EXAMINATION: US PREG BIOPHY W NON STRESS HISTORY: Gestational diabetes mellitus COMPARISON: No relevant comparison available. TECHNIQUE: Ultrasound biophysical profile was performed in the radiology department. FINDINGS: BREATHING MOVEMENTS: 2.0 GROSS BODY MOVEMENTS: 2.0 TONE: 2.0 QUALITATIVE AMNIOTIC FLUID VOLUME: 2.0 PRESENTATION: Cephalic HEART RATE: 145.9 bpm H.B./min AMNIOTIC FLUID VOLUME: 11.7 cm cm, normal range 6.8 to 27.9 cm GESTATIONAL AGE: 36 weeks 0 days CONCLUSION: Total biophysical profile score: 8.0 Electronically authenticated by: CYNTHIA VIRGEN Date: 2022-03-25 16:54 Normal [facility] US PREG GROWTHon 03-25-2022 US PREG GROWTH EXAMINATION: US PREG GROWTH HISTORY: Gestational diabetes mellitus COMPARISON: No relevant comparison available. FINDINGS: Heart Rate: 145.9 bpm Amniotic Fluid Volume: 11.7 cm Number: 1.0 Position: Cephalic presentation, longitudinal lie Maximum Vertical Pocket: 6.9 cm cm 2.7 cm cm 1.4 cm cm 0.7 cm cm BIOMETRY: BPD: 8.7 cm cm; 35 weeks 2 days; 38% HC: 31.8 cmcm; 35 weeks 5 days, 16% AC: 32.6 cm cm; 36 weeks 3 days, 74% FL: 7.0 cm cm; 35 weeks 6 days; 41.2 % % EFW: 2852.8 grams, 6 lbs. 5 oz., 54% FL/AC: 21.5 FL/BPD: 80.0 HC/AC: 1.0 GESTATIONAL AGE: Age by EDC: 36 weeks 0 days JAKE by EDC: 04/22/2022 Age by US: 35 weeks 6 days JAKE by US: 04/23/2022 IMPRESSION: Normal interval growth Electronically authenticated by: CYNTHIA VIRGEN Date: 2022-03-25 16:56 Normal [facility] US PREG BIOPHY W NON STRESSo n 03-18-2022 US PREG BIOPHY W NON STRESS EXAMINATION: US PREG BIOPHY W NON STRESS HISTORY: Gestational diabetes mellitus COMPARISON: No relevant comparison available. TECHNIQUE: Ultrasound biophysical profile was performed in the radiology department. FINDINGS: BREATHING MOVEMENTS: 2.0 GROSS BODY MOVEMENTS: 2.0 TONE: 2.0 QUALITATIVE AMNIOTIC FLUID VOLUME: 2.0 PRESENTATION: Cephalic HEART RATE: 135.5 bpm H.B./min AMNIOTIC FLUID VOLUME: 16.0 cm cm GESTATIONAL AGE: 35 weeks 0 days CONCLUSION: Total biophysical profile score: 8.0 Electronically authenticated by: CYNTHIA VIRGEN Date: 2022-03-18 10:32 Normal [facility] US PREG BIOPHY W NON STRESSo n 03-11-2022 US PREG BIOPHY W NON STRESS EXAMINATION: US PREG BIOPHY W NON STRESS HISTORY: Gestational diabetes mellitus COMPARISON: No relevant comparison available. TECHNIQUE: Ultrasound biophysical profile was performed in the radiology department. non-reactive stress testing was performed by nursing staff in the birthing center. FINDINGS: BREATHING MOVEMENTS: 2.0 GROSS BODY MOVEMENTS: 2.0 TONE: 2.0 QUALITATIVE AMNIOTIC FLUID VOLUME: 2.0 PRESENTATION: cephalic HEART RATE: 137.1 bpm H.B./min AMNIOTIC FLUID VOLUME: 13.8 cm cm GESTATIONAL AGE: 34 weeks 0 days CONCLUSION: Total biophysical profile score: 8.0 Electronically authenticated by: CYNTHIA VIRGEN Date: 2022-03-11 10:00 Normal [facility] US PREG BIOPHY W NON STRESSo n 03-05-2022 US PREG BIOPHY W NON STRESS EXAMINATION: US PREG BIOPHY W NON STRESS HISTORY: Gestational diabetes mellitus COMPARISON: Ultrasound biophysical 02/26/2022 TECHNIQUE: Ultrasound biophysical profile was performed. FINDINGS: BREATHING MOVEMENTS: 2.0 GROSS BODY MOVEMENTS: 2.0 TONE: 2.0 QUALITATIVE AMNIOTIC FLUID VOLUME: 2.0 PRESENTATION: CEPHALIC HEART RATE: 130.4 bpm bpm. AMNIOTIC FLUID VOLUME: 14.0 cm GESTATIONAL AGE: 33 weeks 1 days CONCLUSION: Total biophysical profile score 8.0. Electronically authenticated by: HAILEE GUPTA Date: 2022-03-05 15:50 Normal [facility] US PREG BIOPHY W NON STRESSo n 02-26-2022 US PREG BIOPHY W NON STRESS EXAMINATION: US PREG BIOPHY W NON STRESS HISTORY: Gestational diabetes mellitus COMPARISON: No relevant comparison available. TECHNIQUE: Ultrasound biophysical profile was performed in the radiology department. FINDINGS: BREATHING MOVEMENTS: 2.0 GROSS BODY MOVEMENTS: 2.0 TONE: 2.0 QUALITATIVE AMNIOTIC FLUID VOLUME: 2.0 PRESENTATION: Cephalic HEART RATE: 120.5 bpm H.B./min AMNIOTIC FLUID VOLUME: 12.3 cm cm GESTATIONAL AGE: 32 weeks 1 days CONCLUSION: Total biophysical profile score: 8.0 Electronically authenticated by: CYNTHIA VIRGEN Date: 2022-02-26 14:55 Normal [facility] US PREG GROWTHon 02-26-2022 US PREG GROWTH EXAMINATION: US PREG GROWTH HISTORY: Gestational diabetes mellitus COMPARISON: No relevant comparison available. FINDINGS: Heart Rate: 120.5 bpm Amniotic Fluid Volume: 12.3 cm Number: 1.0 Position: Cephalic presentation, longitudinal lie Maximum Vertical Pocket: 3.5 cm cm 2.1 cm cm 1.7 cm cm 4.9 cm cm BIOMETRY: BPD: 7.8 cm cm; 31 weeks 2 days; 19% HC: 29.6 cmcm; 32 weeks 5 days, 28% AC: 29.5 cm cm; 33 weeks 3 days, 84% FL: 6.0 cm cm; 31 weeks 3 days; 18.4 % % EFW: 2004.8 grams, 4 lbs. 7 oz., 54% FL/AC: 20.5 FL/BPD: 77.3 HC/AC: 1.0 GESTATIONAL AGE: Age by EDC: 32 weeks 1 days JAKE by EDC: 04/22/2022 Age by US: 32 weeks 2 days JAKE by US: 04/21/2022 IMPRESSION: Normal interval growth Electronically authenticated by: CYNTHIA VIRGEN Date: 2022-02-26 14:58 Normal [facility] COVID Quick Testingon 2020 Result Negative [facility] Other Quick Fluon 10-18-2021 FLUAV Ab CF (S) [Titer] Negative [facility] Other FLUBV Ab CF (S) [Titer] Negative [facility] Other Vital Signs Date Time Vital Sign Value Performing Clinician Facility 01-05-2025 16:08-0400 Body height 172.7 cm Sweetie Ruffmanuel [employer] [facility] 01-05-2025 16:08-0400 Body mass index (BMI) [Ratio] 40.02 kg/m2 Sweetie Ruff [employer] [facility] 01-05-2025 16:08-0400 Body temperature 98.01 [degF] Sweetie Ruff [employer] Work Phone: [facility] 01-05-2025 16:08-0400 Body weight 119.39 kg Sweetie Ruff [employer] Work Phone: [facility] 01-05-2025 16:08-0400 Diastolic blood pressure 84 mm[Hg] Sweetie Ruff APRN-PHOTO LAB MANAGER Work Phone: [facility] 01-05-2025 16:08-0400 Heart rate 72 /min Sweetie Ruff APRN-PHOTO LAB MANAGER Work Phone: [facility] 01-05-2025 16:08-0400 Respiratory rate 18 /min Sweetie Ruff APRN-PHOTO LAB MANAGER Work Phone: [facility] 01-05-2025 16:08-0400 SaO2% (BldA) [Mass fraction] 98 % Sweetie Ruff APRN-PHOTO LAB MANAGER Work Phone: [facility] 01-05-2025 16:08-0400 Systolic blood pressure 120 mm[Hg] Sweetie Ruff APRN-PHOTO LAB MANAGER Work Phone: [facility] 01-05-2024 16:27-0400 Body height 172.7 cm Sweetie Ruff APRN-PHOTO LAB MANAGER Work Phone: [facility] 01-05-2024 16:27-0400 Body mass index (BMI) [Ratio] 39.38 kg/m2 Sweetie Ruff APRN-PHOTO LAB MANAGER Work Phone: [facility] 01-05-2024 16:27-0400 Body temperature 98.49 [degF] Sweetie Ruff APRN-PHOTO LAB MANAGER Work Phone: [facility] 01-05-2024 16:27-0400 Body weight 117.48 kg Sweetie Ruff APRN-PHOTO LAB MANAGER Work Phone: [facility] 01-05-2024 16:27-0400 Diastolic blood pressure 70 mm[Hg] Sweetie Ruff APRN-PHOTO LAB MANAGER Work Phone: [facility] 01-05-2024 16:27-0400 Heart rate 74 /min Sweetie Ruff APRN-PHOTO LAB MANAGER Work Phone: [facility] 01-05-2024 16:27-0400 Respiratory rate 18 /min Sweetie Ruff CAN FILLING ROOM SWEEPER-PHOTO LAB MANAGER Work Phone: [facility] 01-05-2024 16:27-0400 SaO2% (BldA) [Mass fraction] 98 % Sweetie Ruff CAN FILLING ROOM SWEEPER-PHOTO LAB MANAGER Work Phone: [facility] 01-05-2024 16:27-0400 Systolic blood pressure 140 mm[Hg] Sweetie Ruff CAN FILLING ROOM SWEEPER-PHOTO LAB MANAGER Work Phone: [facility] Encounters Encounter Date Encounter Type Care Provider Facility Start: 05-09-2025 End: 05-09-2025 Bamboo flowsheet Tyrone Jeancarlos DO Work Phone: [facility] Start: 05-09-2025 End: 05-09-2025 Bamboo flowsheet Tyrone Jeancarlos DO Work Phone: [facility] Start: 02-08-2025 End: 02-08-2025 Bamboo flowsheet Sue A Felter CAN FILLING ROOM SWEEPER-PHOTO LAB MANAGER Work Phone: [facility] Start: 02-08-2025 End: 02-08-2025 Bamboo flowsheet Sue A Felter CAN FILLING ROOM SWEEPER-PHOTO LAB MANAGER Work Phone: [facility] Start: 02-08-2025 End: 02-08-2025 Office outpatient visit 15 minutes Sue A Felter [employer] FILLING ROOM SWEEPER-PHOTO LAB MANAGER Work Phone: [facility] Comment on above: Hidradenitis suppura tiva (Primary Dx) Start: 02-08-2025 End: 02-08-2025 ambulatory SUE A FELTER Not Available Start: 01-05-2025 End: 01-05-2025 ambulatory [facility] Start: 01-05-2025 Encounter for genera l adult medical examination without abnormal findings [facility] Start: 01-05-2025 End: 01-05-2025 Patient encounter procedure Sweetie Santanaillo CAN FILLING ROOM SWEEPER-PHOTO LAB MANAGER Work Phone: [facility] Start: 01-05-2025 End: 01-05-2025 Periodic preventive med est patient 18-39 yrs Sweetie Walker Ruff CAN FILLING ROOM SWEEPER-PHOTO LAB MANAGER Work Phone: [facility] Comment on above: Annual physical exam (Primary Dx); Blood tests for routine general physical examination Start: 01-05-2025 End: 01-05-2025 Physical examination Sweetie Walker Ruff CAN FILLING ROOM SWEEPER-PHOTO LAB MANAGER Work Phone: [facility] Work Phone: Start: 01-05-2025 End: 01-05-2025 ambulatory [facility] Start: 01-05-2025 Encounter for genera l adult medical examination without abnormal findings [facility] Start: 12-12-2024 End: 12-12-2024 Bamboo flowsheet Sue A Felter CAN FILLING ROOM SWEEPER-PHOTO LAB MANAGER Work Phone: [facility] Start: 12-12-2024 End: 12-12-2024 Bamboo flowsheet Sue A Felter CAN FILLING ROOM SWEEPER-PHOTO LAB MANAGER Work Phone: [facility] Start: 12-12-2024 End: 12-12-2024 Office outpatient new 30 minutes Sue A Felter CAN FILLING ROOM SWEEPER-PHOTO LAB MANAGER Work Phone: [facility] Comment on above: Hidradenitis suppura tiva Start: 12-12-2024 End: 12-12-2024 ambulatory SUE A FELTER Not Available Start: 05-05-2024 End: 05-05-2024 ambulatory JOLYNN JONATHAN Not Available Start: 01-05-2024 End: 01-05-2024 Patient encounter procedure Sweetie Santanaillo CAN FILLING ROOM SWEEPER-PHOTO LAB MANAGER Work Phone: [facility] Work Phone: Start: 01-05-2024 End: 01-05-2024 Periodic preventive med est patient 18-39 yrs Sweetie J Speedy CAN FILLING ROOM SWEEPER-PHOTO LAB MANAGER Work Phone: [facility] Comment on above: Annual physical exam (Primary Dx); Blood tests for routine general physical examination Start: 01-05-2024 End: 01-05-2024 Physical examination Sweetie Ruff CAN FILLING ROOM SWEEPER-PHOTO LAB MANAGER Work Phone: [facility] Start: 02-09-2023 End: 02-09-[address] TYRONE ARSHAD . Facility:[facility] Start: 04-24-2022 End: 04-24-[address] TYRONE ARSHAD . Facility:[facility] Start: 04-23-[address] TYRONE ARSHAD . Facili ty:[facility] Start: 04-17-2022 End: 04-24-[address] TYRONE ARSHAD . Facility:[facility] Start: 04-16-2022 ambulatory SWEETIE RUFF Facili ty:[facility] Start: 04-10-2022 End: 04-10-[address] TYRONE ARSHAD . Facility:[facility] Start: 04-08-[address] TYRONE ARSHAD . Facili ty:[facility] Start: 04-04-2022 End: 04-06-2022 Evaluation and management of inpatient DR RAHUL POPE . Facility:[facility] Start: 04-01-2022 End: 04-01-[address] TYRONE ARSHAD . Facility:[facility] Start: 03-28-2022 End: 03-28-[address] NONE LISTED REQUEST Facility:[facility] Start: 03-26-2022 End: 03-26-[address] NONE LISTED REQUEST Facility:[facility] Start: 03-25-2022 End: 03-25-[address] TYRONE ARSHAD . Facility:[facility] Start: 03-21-2022 End: 03-21-[address] TYRONE ARSHAD . Facility:[facility] Start: 03-20-2022 End: 03-21-[address] TYRONE ARSHAD . Facility:[facility] Start: 03-18-2022 End: 03-18-2022 ambulatory CYNTHIA VIRGEN Facility:[facility] Start: 03-14-2022 End: 03-14-[address] NONE LISTED REQUEST Facility:[facility] Start: 03-11-2022 End: 03-11-2022 ambulatory CYNTHIA VIRGEN Facility:[facility] Start: 03-08-2022 End: 03-08-2022 ambulatory NONE LISTED REQUEST Facility: Start: 03-05-2022 End: 03-05-[address] TYRONE ARSHAD . Facility:[facility] Start: 03-01-2022 End: 03-01-2022 ambulatory NONE LISTED REQUEST Facility: Start: 02-26-2022 End: 02-26-[address] RAHUL POPE . Facility:[facility] Start: 10-18-2021 End: 10-18-2021 ambulatory Oanh Gil Other [facility] Other Start: 10-18-2021 Office outpatient vi sit 15 minutes Oanh Gil [facility] Av Procedures Date Procedure Procedure Detail Performing Clinician Start: 01-05-2025 Adult depression scr eening assessment Sweetie Ruff CAN FILLING ROOM SWEEPER-PHOTO LAB MANAGER Work Phone: Start: 05-05-2024 Microscopic observat ion [Identifier] in Cervix by Cyto stain Tyrone Arshad DO Work Phone: Start: 01-05-2024 Adult depression scr eening assessment Sweetie Ruff CAN FILLING ROOM SWEEPER-PHOTO LAB MANAGER Work Phone: Start: 04-04-2022 Delivery of Products of Conception, External Approach DR TYRONE ARSHAD . Start: 04-04-2022 Drainage of Amniotic Fluid, Therapeutic from Products of Conception, Via Natural or Artificial Opening DR TYRONE ARSHAD . Start: 04-04-2022 Introduction of Othe r Hormone into Peripheral Vein, Percutaneous Approach DR TYRONE ARSHAD . Start: 04-04-2022 Repair Vulva, Trust Manager Assistant al Approach DR TYRONE ARSHAD . Plan of Treatment Date Care Activity Detail Author Start: 04-06-2032 DTaP,Tdap and Td Vaccines (3 - Td or Tdap) DTaP,Tdap and Td Vaccines (3 - Td or Tdap) [facility] Start: 05-05-2027 Screening for malign ant neoplasm of cervix [facility] Start: 01-08-2026 End: 01-08-2026 Patient encounter procedure 01/08/2026 4:00 PM EDT [facility] [address] [place] [address] Sweetie Ruff, CAN FILLING ROOM SWEEPER-PHOTO LAB MANAGER [address] [place] [address] [facility] Start: 01-05-2026 Adult BMI Screening Adult BMI Screen ing [facility] Start: 01-05-2026 Depression Screening Depression Scre ening [facility] Start: 01-05-2026 Tobacco Screening Tobacco Screening [facility] Start: 06-19-2025 Influenza vaccination Influenza Vacc ine (#1) [facility] Start: 06-12-2025 End: 06-12-2025 Patient encounter procedure 06/12/2025 10:50 AM EDT Office Visit [facility] [address] [place] [address] Sue Neil, CAN FILLING ROOM SWEEPER-PHOTO LAB MANAGER [address] [place] [address] [facility] Start: 05-09-2025 End: 05-09-2025 Patient encounter procedure [facility] Comment on above: Arrived Start: 02-08-2025 End: 02-08-2025 Patient encounter procedure [facility] Comment on above: Arrived Start: 01-05-2025 End: 01-05-2025 Patient encounter procedure 01/05/2025 4:00 PM EDT Office Visit [facility] [address] [place] [address] Sweetie Ruff, CAN FILLING ROOM SWEEPER-PHOTO LAB MANAGER [address] [place] [address] [facility] Start: 01-04-2025 Adult BMI Follow Up Plan Adult BMI Follow Up Plan [facility] Start: 01-04-2025 Adult BMI Screening Adult BMI Screen ing [facility] Start: 01-04-2025 Depression Screening Depression Scre ening [facility] Start: 01-04-2025 Tobacco Screening Tobacco Screening [facility] Start: 12-12-2024 End: 12-12-2024 Patient encounter procedure 12/12/2024 10:50 AM EST Office Visit [facility] [address] [place] [address] Sue Neil CAN FILLING ROOM SWEEPER-PHOTO LAB MANAGER [address] [place] [address] Arrived [facility] Comment on above: Arrived Start: 06-19-2024 Influenza vaccination Influenza Vacc [facility] Start: 06-19-2023 Influenza vaccination Influenza Vacc [facility] Start: 2019 Screening for malign ant neoplasm of cervix HPV/Cotest [facility] Start: 2010 Screening for malign ant neoplasm of cervix Pap Smear [facility] End: 01-05-2025 Hemoglobin A1c/Hemoglobin.total in Blood Hemoglobin A1c Lab Routine Blood tests for routine general physical examination 1 Occurrences starting 01/05/2024 until 01/05/2025 [facility] Work Phone: Comment on above: 1 Occurrences starti ng 01/05/2024 until 01/05/2025 Hemoglobin A1c/Hemoglobin.total in Blood Hemoglobin A1c Lab Routine Blood tests for routine general physical examination 01/05/2024 10:31 PM EDT [facility] [employer] End: 01-04-2025 Lipid panel Lipid panel Lab Routine Blood tests for routine general physical examination 1 Occurrences starting 01/05/2024 until 01/04/2025 [facility] [employer] Comment on above: 1 Occurrences starti ng 01/05/2024 until 01/04/2025 Immunizations Immunization Date Immunization Notes Care Provider Fa cility 05-15-2019 tetanus toxoid, redu makayla diphtheria toxoid, and acellular pertussis vaccine, adsorbed Sweetie Ruff CAN FILLING ROOM SWEEPER-PHOTO LAB MANAGER Work Phone: [facility] [employer] Payers Date Payer Category Payer Blue Cross Blue Shield BCBS [id number] 2024 Blue Cross Blue Shie Managed Care - Other [facility] [id number] 2024 Unknown [id number] 2022 Private Health Insurance [facility] [employer] [id number] 2022-Present [phone] [address] [address] [place] [address] [id number] 1989 Unknown [id number] 2.16.840.1.708567.3.579. 2.593 1989 Unknown [id number] 2.16.840.1.894312.3.579. 2.593 1989 Unknown [id number] 2.16.840.1.313799.3.579. 2.593 1989 Unknown [id number] 2.16.840.1.942992.3.579. 2.593 1989 Unknown [id number] 2.16.840.1.800927.3.579. 2.593 1989 Unknown [id number] 2.16.840.1.520945.3.579. 2.593 1989 Unknown [id number] 2.16.840.1.319372.3.579. 2.593 1989 Unknown [id number] 2.16.840.1.229951.3.579. 2.593 1989 Unknown [id number] 2.16.840.1.504930.3.579. 2.593 1989 Unknown [id number] 2.16.840.1.046632.3.579. 2.593 1989 Unknown [id number] 2.16.840.1.976122.3.579. 2.593 1989 Unknown [id number] 2.16.840.1.870082.3.579. 2.593 1989 Unknown [id number] 2.16.840.1.992081.3.579. 2.593 1989 Unknown [id number] 2.16.840.1.872309.3.579. 2.593 1989 Unknown [id number] 2.16.840.1.392034.3.579. 2.593 1989 Unknown [id number] 2.16.840.1.401645.3.579. 2.593 1989 Unknown [id number] 2.16.840.1.339665.3.579. 2.593 1989 Unknown [id number] 2.16.840.1.923242.3.579. 2.593 1989 Unknown [id number] 2.16.840.1.188714.3.579. 2.593 1989 Unknown [id number] 2.16.840.1.447587.3.579. 2.593 1989 Unknown [id number] 2.16.840.1.276651.3.579. 2.593 1989 Unknown [id number] 2.16.840.1.884125.3.579. 2.593 1989 Unknown [id number] 2.16.840.1.697419.3.579. 2.1286 1989 Unknown [id number] 2.16.840.1.253840.3.579. 2.1286 1989 Unknown [id number] 2.16.840.1.260035.3.579. 2.1259 1989 Unknown [id number] 2.16.840.1.708096.3.579. 2.1259 1989 Unknown [id number] 2.16.840.1.464817.3.579. 2.1259 1959 [facility] [id number] 2.16.840.1.291364.19 1959 Unknown [id number] 1959 Unknown [id number] Social History Date Type Detail Facility Start: 02-22-2021 End: 02-08-2025 Sex Assigned At [facility] Start: 01-05-2024 End: 02-08-2025 Tobacco smoking status [facility] Never smoked tobacco [facility] Start: 01-05-2024 End: 02-08-2025 Tobacco use and exposure Smokeless tobacco non-user [facility] Start: 01-05-2024 End: 01-05-2025 Alcohol intake Ex-drinker (finding) [facility] Start: 02-22-2021 End: 02-08-2025 History of Social function [facility] Frequency of Communication with Friends and Family Not on file [facility] Do you belong to any clubs or organizations such as jewish groups, unions, fraternal or athletic groups, or school groups? Yes [facility] Are you now , , , , never or living with a partner? [facility] How often to you hav e a drink containing alcohol? 2-4 times a month [facility] How many standard dr inks containing alcohol do you have on a typical day? 1 or 2 [facility] How often do you hav e 6 or more drinks on 1 occasion? Never [facility] Do you feel stress - tense, restless, nervous, or anxious, or unable to sleep at night because your mind is troubled all the time - these days [OSQ] Only a little [facility] Start: 02-22-2021 Education 17 [facility] Start: 01-21-2018 Alcohol Comment occasionally [facility] Start: 1989 Sex Assigned At Not on file [facility] Tobacco smoking stat [facility] Tobacco smoking consumption unknown [facility] Start: 06-19-2015 Sex Female (finding) [facility] Clinical Notes 10-18-2021 to 02-08-2025 Sue Neil, [facility] F[facility]ING [facility] 02/08/2025 10:50 AM Fatimah Ruff, CAN FILLING [facility] - 01/05/2025 4:00 PM Nasra Neil [facility] - 12/12/2024 10:50 AM EST Note Date & Type Note Facility 02-08-2025 History of Present illness Narrative Follow up Diagnosis: Hidradenitis Location: both axilla Last visit: 2 months ago Symptoms: red, painful, draining Status: Improvement with pain and lesions are healing per patient Current treatment: Doxycycline 100 mg every day, patient reports increase stools the first week of taking ATB, now pt is taking with food now and normal stools are noted, PT denies any headaches, and denies vision changes. Last Simons stage: Stage 2 All pertinent medical history, medications, and allergies were reviewed. General Exam: alert, oriented to person, place, and time, normal affect, well appearing Unaccompanied A focused exam completed based on patient reported problems, see below: Skin Exam 1. HIDRADENITIS SUPPURATIVA Left Axilla, Right Axilla Erythematous nodules, double comedones, and scarring. Simons Stage 1. Improvement since last visit. The patient was counseled that hidradenitis is a chronic inflammatory disorder of the hair follicles and sweat glands. There appears to be a genetic predisposition for this condition. Quitting smoking, weight loss, and wearing looser fitting clothing may help decrease the severity/amount of flares. The patient was informed that treatment can be difficult and depends on the severity of the condition. Treatment options were explained which include topical antibacterials, oral antibiotics, and Humira. Denies side effects from medications. Continue Doxycycline 100 mg once daily. Recommend patient take medication with food but not dairy, sit up for 30 min after taking medication, avoid on this medication, wear sunscreen as this medication increases sun sensitivity, and discontinue medication and notify clinic if new headaches/vision changes or other side effects occur. Related Medications doxycycline (Monodox) 100 MG capsule Take 1 capsule, by mouth, once daily, 30 days Next Visit: follow up in 4 months documented in this encounter [facility] 01-05-2025 History of Present illness Narrative Images from the original note were not included. [address] [facility] [id number] SUBJECTIVE: Patient ID: Alexandra Knott is a 34 y.o. female. Chief Complaint Patient presents with Annual Exam Patient presents for annual physical. She is . Has two young daughters Works full-time day shift at [email or web address] She does not smoke Offers no complaints. Annual Exam Pertinent negatives include no chest pain, chills or fever. The following portions of the patient's history were reviewed and updated as appropriate: allergies, current medications, past family history, past medical history, past social history, past surgical history and problem list. Past Surgical History: Procedure Laterality Date CYST REMOVAL CYST REMOVAL back Past Medical History: Diagnosis Date Diabetes mellitus ([facility]) GDM Hypertension Insulin controlled gestational diabetes mellitus (GDM) in third trimester 01/25/2019 On levemir 21 units SQ at bedtime MFM Growth US 05/05/19: cephalic, anterior placenta, FER 23.49cm, EFW 3146hm 61%ile, AC >97% Obesity Visual impairment patient wears glasses Immunization History Administered Date(s) Administered Tdap 05/15/2019 REVIEW OF SYSTEMS: Review of Systems Constitutional: Negative for chills and fever. HENT: Negative. Eyes: Negative for visual disturbance. Respiratory: Negative for chest tightness and shortness of breath. Cardiovascular: Negative for chest pain and palpitations. Gastrointestinal: Negative. Endocrine: Negative. Genitourinary: Negative for menstrual problem and pelvic pain. Musculoskeletal: Negative. Skin: Negative. Allergic/Immunologic: Negative. Neurological: Negative for syncope and facial asymmetry. Hematological: Does not bruise/bleed easily. Psychiatric/Behavioral: Negative. PHYSICAL EXAMINATION: Vitals: 01/05/25 1608 BP: 120/84 BP Site: Left Arm BP Postition: Sitting Pulse: 72 Resp: 18 Temp: 36.7 C (98 F) TempSrc: Oral SpO2: 98% Weight: 119.4 kg (263 lb 3.2 oz) Height: 172.7 cm (5' 8 ) Patient noted to have elevated BMI and the following intervention(s) were applied: encouragement to exercise. Physical Exam Vitals and nursing note reviewed. Constitutional: General: She is not in acute distress. Appearance: She is well-developed. She is not diaphoretic. HENT: Head: Normocephalic and atraumatic. Right Ear: Tympanic membrane and external ear normal. Left Ear: Tympanic membrane and external ear normal. Nose: Nose normal. Mouth/Throat: Mouth: Mucous membranes are moist. Pharynx: No oropharyngeal exudate. Eyes: General: Right eye: No discharge. Left eye: No discharge. Conjunctiva/sclera: Conjunctivae normal. Pupils: Pupils are equal, round, and reactive to light. Neck: Thyroid: No thyromegaly. Vascular: No JVD. Cardiovascular: Rate and Rhythm: Normal rate and regular rhythm. Heart sounds: Normal heart sounds. No murmur heard. No friction rub. No gallop. Pulmonary: Effort: Pulmonary effort is normal. Breath sounds: Normal breath sounds. Abdominal: General: Bowel sounds are normal. There is no distension. Palpations: Abdomen is soft. There is no mass. Tenderness: There is no abdominal tenderness. Musculoskeletal: General: Normal range of motion. Cervical back: Normal range of motion and neck supple. Lymphadenopathy: Cervical: No cervical adenopathy. Skin: General: Skin is warm and dry. Capillary Refill: Capillary refill takes less than 2 seconds. Neurological: Mental Status: She is alert and oriented to person, place, and time. Deep Tendon Reflexes: Reflexes are normal and symmetric. Psychiatric: Mood and Affect: Mood normal. Behavior: Behavior normal. Thought Content: Thought content normal. Judgment: Judgment normal. ASSESSMENT/PLAN: Alexandra was seen today for annual exam. Diagnoses and all orders for this visit: Annual physical exam Blood tests for routine general physical examination - Comprehensive metabolic panel; Future - CBC auto differential; Future - Lipid profile; Future - Hemoglobin A1c; Future Depression: Not at risk (01/05/2025) PHQ-2 PHQ-2 Score: 0 Body mass index is 40.02 kg/m . Patient noted to have elevated BMI and the following intervention(s) were applied: Discussed current weight today. Consider healthy food choices, portion control. Avoid sugary beverages and high concentrated sweets. Routine exercise regimen encouraged. Wellness labs drawn in office today. ALL QUESTIONS ANSWERED Total time spent was 30 minutes: Preparing to see the patient (e.g., review of tests) Obtaining and/or reviewing separately obtained history Performing a medically appropriate examination and/or evaluation Counseling and educating the patient/family/caregiver Ordering medications, tests, or procedures Follow-up: One year EWELINA Oliva 01/09/25 0903 documented in this encounter [facility] 12-12-2024 History of Present illness Narrative Images from the original note were not included. Lesions: Location: CLARISSE axilla Duration: 3-4 months Quality: painful Modifying factors: aggravated by arms moving and clothes Associated symptoms: draining, non-healing, red Treatments: none New patient All pertinent medical history, medications, and allergies were reviewed. General Exam: alert, oriented to person, place, and time, normal affect, well appearing Unaccompanied A focused exam completed based on patient reported problems, see below: 1. Hidradenitis suppurativa Left Axilla, Right Axilla Erythematous nodules, double comedones, and scarring. Simons Stage 2. Flaring today The patient was counseled that hidradenitis is a chronic inflammatory disorder of the hair follicles and sweat glands. There appears to be a genetic predisposition for this condition. Quitting smoking, weight loss, and wearing looser fitting clothing may help decrease the severity/amount of flares. The patient was informed that treatment can be difficult and depends on the severity of the condition. Treatment options were explained which include topical antibacterials, oral antibiotics, and Humira. Start Doxycycline 100 mg once daily. Recommend patient take medication with food but not dairy, sit up for 30 min after taking medication, avoid on this medication, wear sunscreen as this medication increases sun sensitivity, and discontinue medication and notify clinic if new headaches/vision changes or other side effects occur. Follow up in months. Related Medications doxycycline (Monodox) 100 MG capsule Take 1 capsule, by mouth, once daily, 30 days Next Visit: 2 months, follow up documented in this encounter [facility] 01-05-2024 History of Present illness Narrative Images from the original note were not included. [address] [facility] [address] SUBJECTIVE: Patient ID: Alexandra Knott is a 33 y.o. female. Chief Complaint Patient presents with Annual Exam Presents for annual physical She has no concerns. Has IUD Has two small children. Does not smoke. . Works full-time Annual Exam Pertinent negatives include no chest pain, chills or fever. The following portions of the patient's history were reviewed and updated as appropriate: allergies, current medications, past family history, past medical history, past social history, past surgical history and problem list. Past Surgical History: Procedure Laterality Date CYST REMOVAL CYST REMOVAL back Past Medical History: Diagnosis Date Diabetes mellitus ([facility]) GDM Hypertension Insulin controlled gestational diabetes mellitus (GDM) in third trimester 01/25/2019 On levemir 21 units SQ at bedtime MFM Growth US 05/05/19: cephalic, anterior placenta, FER 23.49cm, EFW 3146hm 61%ile, AC >97% Obesity Visual impairment patient wears glasses Immunization History Administered Date(s) Administered Tdap 05/15/2019 REVIEW OF SYSTEMS: Review of Systems Constitutional: Negative for chills and fever. HENT: Negative. Eyes: Negative for visual disturbance. Respiratory: Negative for chest tightness and shortness of breath. Cardiovascular: Negative for chest pain and palpitations. Gastrointestinal: Negative. Endocrine: Negative. Genitourinary: Negative for menstrual problem and pelvic pain. Musculoskeletal: Negative. Skin: Negative. Allergic/Immunologic: Negative. Neurological: Negative for syncope and facial asymmetry. Hematological: Does not bruise/bleed easily. Psychiatric/Behavioral: Negative. PHYSICAL EXAMINATION: Vitals: 01/05/24 1627 BP: 140/70 BP Site: Left Arm BP Postition: Sitting Pulse: 74 Resp: 18 Temp: 36.9 C (98.5 F) TempSrc: Oral SpO2: 98% Weight: 117.5 kg (259 lb) Height: 172.7 cm (5' 8 ) Patient noted to have elevated BMI and the following intervention(s) were applied: encouragement to exercise. Physical Exam Vitals and nursing note reviewed. Constitutional: General: She is not in acute distress. Appearance: She is well-developed. She is not diaphoretic. HENT: Head: Normocephalic and atraumatic. Right Ear: Tympanic membrane and external ear normal. Left Ear: Tympanic membrane and external ear normal. Nose: Nose normal. Mouth/Throat: Mouth: Mucous membranes are moist. Pharynx: No oropharyngeal exudate. Eyes: General: Right eye: No discharge. Left eye: No discharge. Conjunctiva/sclera: Conjunctivae normal. Pupils: Pupils are equal, round, and reactive to light. Neck: Thyroid: No thyromegaly. Vascular: No JVD. Cardiovascular: Rate and Rhythm: Normal rate and regular rhythm. Heart sounds: Normal heart sounds. No murmur heard. No friction rub. No gallop. Pulmonary: Effort: Pulmonary effort is normal. Breath sounds: Normal breath sounds. Abdominal: General: Bowel sounds are normal. There is no distension. Palpations: Abdomen is soft. There is no mass. Tenderness: There is no abdominal tenderness. Musculoskeletal: General: Normal range of motion. Cervical back: Normal range of motion and neck supple. Lymphadenopathy: Cervical: No cervical adenopathy. Skin: General: Skin is warm and dry. Capillary Refill: Capillary refill takes less than 2 seconds. Neurological: Mental Status: She is alert and oriented to person, place, and time. Deep Tendon Reflexes: Reflexes are normal and symmetric. Psychiatric: Mood and Affect: Mood normal. Behavior: Behavior normal. Thought Content: Thought content normal. Judgment: Judgment normal. ASSESSMENT/PLAN: Alexandra was seen today for annual exam. Diagnoses and all orders for this visit: Annual physical exam Blood tests for routine general physical examination - CBC auto differential; Future - TSH; Future - Comprehensive metabolic panel; Future - Hemoglobin A1c; Future - Lipid panel; Future Body mass index is 39.38 kg/m . Patient noted to have elevated BMI and the following intervention(s) were applied: Discussed current weight today. Consider healthy food choices, portion control. Avoid sugary beverages and high concentrated sweets. Routine exercise regimen encouraged. Labs drawn in office today Has IUD for control. Is established with local STAFF TRAINER. Encourage to make f/u appointments as directed by STAFF TRAINER ALL QUESTIONS ANSWERED Total time spent was 30 minutes: Preparing to see the patient (e.g., review of tests) Obtaining and/or reviewing separately obtained history Performing a medically appropriate examination and/or evaluation Counseling and educating the patient/family/caregiver Ordering medications, tests, or procedures Follow-up: One year EWELINA Oliva 01/05/24 1713 documented in this encounter [facility] 10-18-2021 Evaluation note Encounter Date Diagnosis Assessment Notes Sep, Contact with and (suspected) exposure to other viral communicable diseases (ICD-10 - Z20.828) Sep, Viral upper respiratory illness (ICD-10 - J06.9) Drink plenty fluids, get plenty of rest. Take Tylenol as needed for aches pains or fevers. Follow-up with your COMMERCIAL COLLECTIONS SPECIALIST for any further concerns Sep, Cough (ICD-10 - R05.9) Sep, Other Additional time spent conducting pre-visit phone call, screening for symptoms, instructions on social distancing, application and removal of PPE, and cleaning of examination room, equipment and supplies was preformed. Patient education given for testing methodology and results. Patient care instructions given in writting by [facility] At Home document. Flocations Other Evaluation note* Diagnosis Annual physical exam- Primary Routine general medical examination at a health care facility Blood tests for routine general physical examination Laboratory examination ordered as part of a routine general medical examination documented in this encounter [facility]* Diagnosis Hidradenitis suppurativa Hidradenitis documented in this encounter [facility] HealthcareEvaluation note* Diagnosis Annual physical exam- Primary Routine general medical examination at a health care facility Blood tests for routine general physical examination Laboratory examination ordered as part of a routine general medical examination documented in this encounter [facility] SystemEvaluation note* Diagnosis Hidradenitis suppurativa- Primary Hidradenitis documented in this encounter [facility] HealthcareInstructions* Attachments The following attachments cannot be sent through Care Everywhere. * Yearly Physical for Adults (Moroccan) [facility] Attachments The following attachments cannot be sent through Care Everywhere. * Yearly Physical for Adults ([place]oc[place]) [facility] Purpose Family History No Family History Records FoundNo Family History Records FoundNo Family History Records FoundNo Family History Records Found Advance Directives Latest Code Status on File Code Status Date Activated Date Inactivated Comments Full Code 05/13/2019 6:22 AM 05/16/2019 2:06 AM Date Activated Date Inactivated Comments 05/13/2019 6:22 AM 05/16/2019 2:06 AM Additional Source Comments REASON FOR VISIT (unrecogniz ed section and content) Reason Comments Annual Exam Reason Comments Suspicious Skin Lesion Reason Comments Follow-up INFORMATION SOURCE (unrecogn ized section and content) DATE CREATED AUTHOR 02/18/2023 [facility] DATE CREATED AUTHOR AUTHOR'S ORGANIZ ATION 01/07/2025 [facility] DATE CREATED AUTHOR AUTHOR'S ORGANIZ ATION 01/07/2025 [facility] DATE CREATED AUTHOR AUTHOR'S ORGANIZ ATION 02/09/2025 [facility] dical Specialists EPIC Care Teams (unrecognized sec tion and content) Resident Program Specialist Relationship Specialty Start Date End Date Sweetie Ruff, CAN FILLING ROOM SWEEPER-PHOTO LAB MANAGER [address], [place] [address] PCP - General Family Medicine 01/20/18 Resident Program Specialist Relationship Specialty Start Date End Date Sweetie Ruff, CAN FILLING ROOM SWEEPER-[facility] [address], [place] [address] PCP - General Family Medicine 01/20/18 Resident Program Specialist Relationship Specialty Start Date End Date Sue Neil, CAN FILLING ROOM SWEEPER-[facility] [address] [place] [address] PCP - [facility] 03/19/25 FOR RECORDS PERTAINING TO PATIENTS WHO ARE OR HAVE BEEN ENROLLED IN A CHEMICAL DEPENDENCY/SUBSTANCEABUSE PROGRAM, SOME INFORMATION MAY BE OMITTED. This clinical summary was aggregated from multiple sources. Caution should be exercised in using it in the provision of clinical care. This summary normalizes information from multiple sources, and as a consequence, information in this document may materially change the coding, format and clinical context of patient data. In addition, data may be omitted in some cases. CLINICAL DECISIONS SHOULD BE BASED ON THE PRIMARY CLINICAL RECORDS. [facility]. provides no warranty or guarantee of the accuracy or completeness of information in this document.
[2025-05-11 15:08] LABS: Age Gdln ACOG Testing Note (.); IGP, Aptima HPV, rfx 16/18,45 Note (.)
== END 2025-05-09 12:26 | disposition home or self-care (01) ==
LOC: LAB 12:25
PROVIDERS: Visit Provider Obstetrics & Gynecology
DX: Z01.419 Encounter for gynecological examination (general) (routine) without abnormal findings (principal)
CPT/HCPCS: 87624; 88175